=== PATIENT | female | born 1940 | race African-American/Black ===

== ENCOUNTER 2021-07-24 20:13 | Inpatient (IN) | payer MEDICARE ==
[~2021-07-24] VITALS: Ht 177.8 cm; Wt 87.5 kg
[2021-07-24 22:42] LABS: HEMATOCRIT. 37.6 % (36.0-48.0); HEMOGLOBIN. 11.8 g/dL (12.0-16.0); MEAN CORPUSCULAR VOLUME 92.5 fL (81.0-99.0); MEAN PLATELET VOLUME 9.1 fl (7.4-10.4); PLATELET 235 x1000/uL (130-400); RED BLOOD CELL COUNT 4.07 mill/uL (4.2-5.4); RED CELL DISTRIBUTION WIDTH 16.2 % (11.6-14.6)
[2021-07-24 22:45] LABS: CHLORIDE 115 mEq/L (98-107)
[2021-07-24 23:07] LABS: PLATELET ESTIMATE NORMAL
[2021-07-24] MEDS ORDERED: ACETAMINOPHEN 650MG SUPP PR STA (23:09)
[2021-07-24] MEDS ORDERED: VANCOMYCIN 1G PREMIX 200 ML IV SCH (23:15)
[2021-07-24] MEDS ORDERED: PIPERACILLIN/TAZ 3.375G PREMIX 50 ML IV SCH (23:15)
[2021-07-24] MEDS ORDERED: SODIUM CHLORIDE 0.9% 1000ML BAG (SEPSIS BOLUS) IV ONE (23:15)
[2021-07-24] MEDS ORDERED: ACETAMINOPHEN 650MG SUPP PR SCH (23:30)
[2021-07-25 00:14] LABS: CLARITY URINE CLOUDY (CLEAR); COLOR URINE YELLOW (YELLOW); KETONES URINE NEGATIVE (NEGATIVE); LEUKOCYTE ESTERASE URINE 3+ (NEGATIVE); NITRITE URINE NEGATIVE (NEGATIVE); OCCULT BLOOD URINE NEGATIVE (NEGATIVE); PROTEIN URINE 1+ (NEGATIVE); SPECIFIC GRAVITY URINE 1.017 (1.005-1.030); UROBILINOGEN URINE 0.2 E.U./dL (0.2-1.0)
[2021-07-25] MEDS ORDERED: VANCOMYCIN 1GM PMX (XELLIA) 200 ML IV SCH (00:15)
[2021-07-25] MEDS ORDERED: ONDANSETRON HCL 4MG/2ML INJ IV PRN (04:30)
[2021-07-25] MEDS ORDERED: SODIUM CHLORIDE 0.9% 1,000 ML IV SCH (04:30)
[2021-07-25] MEDS ORDERED: IPRATROPIUM/ALBUTEROL 0.5-3(2.5)MG/3ML NEB HHN PRN (04:30)
[2021-07-25] MEDS ORDERED: SODIUM CHLORIDE 0.9% 250 ML IV PRN (04:30)
[2021-07-25] MEDS ORDERED: GUAIFENESIN 200MG/10ML SUGAR FREE UDC PO PRN (04:30)
[2021-07-25] MEDS ORDERED: ENOXAPARIN 40MG/0.4ML SYR SUBCUT SCH (04:30)
[2021-07-25] MEDS ORDERED: DEXTROSE 50% WATER 50ML SYRINGE IV PRN (04:45)
[2021-07-25] MEDS ORDERED: PIPERACILLIN/TAZOBACTAM 3.375GM/50ML PREMIX IV SCH (06:00)
[2021-07-25 06:30] VITALS: BP 101/47
[2021-07-25] MEDS: BLOOD SUGAR DIAGNOSTIC STRIP TEST SCH ×4 (07:10→21:36)
[2021-07-25 08:00] VITALS: BP 96/50
[2021-07-25] MEDS: ENOXAPARIN 30MG/0.3ML SYR SUBCUT SCH (08:48)
[2021-07-25] MEDS: INSULIN LISPRO 100 UNITS/ML SUBCUT SCH ×4 (08:49→21:00)
[2021-07-25 09:31] LABS: HEMATOCRIT. 31.3 % (36.0-48.0); MEAN CORPUSCULAR HEMOGLOBIN 29.5 pg (28.0-32.0); MEAN CORPUSCULAR VOLUME 92.9 fL (81.0-99.0); MEAN PLATELET VOLUME 8.5 fl (7.4-10.4); PLATELET 169 x1000/uL (130-400); RED BLOOD CELL COUNT 3.38 mill/uL (4.2-5.4); RED CELL DISTRIBUTION WIDTH 16.4 % (11.6-14.6)
[2021-07-25] MEDS ORDERED: LACTATED RINGERS 1,000 ML IV SCH (10:00)
[2021-07-25 11:04] LABS: PLATELET ESTIMATE NORMAL
[2021-07-25 12:00] VITALS: BP 120/56
[2021-07-25] MEDS: PIPERACILLIN/TAZOBACTAM 3.375G in DEXT 5% WATER 50ML IV SCH ×3 (14:09→21:40)
[2021-07-25] MEDS: DEXT 5%/LACTATED RINGERS 1,000 ML IV SCH (14:10)
[2021-07-25 15:21] VITALS: BP 96/50
[2021-07-25 16:00] VITALS: BP 105/51
[2021-07-25 20:00] VITALS: BP 136/55
[2021-07-25] MEDS ORDERED: NALOXONE HCL 0.4MG/ML VIAL IV PRN (22:45)
[2021-07-25] MEDS ORDERED: VANCOMYCIN 750MG PMX (XELLIA) 150 ML IV SCH (23:00)
[2021-07-26] VITALS (7 sets, daily range): BP systolic 99–120; BP diastolic 51–65
[2021-07-26] MEDS: TRAMADOL 50MG TABLET PO PRN (00:03)
[2021-07-26] MEDS: ACETAMINOPHEN 325MG TABLET PO PRN ×2 (00:09→23:48)
[2021-07-26] MEDS ORDERED: VANCOMYCIN 750MG PMX (XELLIA) 150 ML IV SCH (01:00)
[2021-07-26] MEDS: DEXT 5%/LACTATED RINGERS 1,000 ML IV SCH ×2 (02:55→18:15)
[2021-07-26] MEDS: PIPERACILLIN/TAZOBACTAM 3.375G in DEXT 5% WATER 50ML IV SCH ×3 (05:48→21:51)
[2021-07-26 06:29] LABS: HEMATOCRIT. 30.8 % (36.0-48.0); MEAN CORPUSCULAR HEMOGLOBIN 29.7 pg (28.0-32.0); MEAN CORPUSCULAR VOLUME 91.5 fL (81.0-99.0); MEAN PLATELET VOLUME 8.5 fl (7.4-10.4); PLATELET 166 x1000/uL (130-400); RED BLOOD CELL COUNT 3.37 mill/uL (4.2-5.4); RED CELL DISTRIBUTION WIDTH 15.7 % (11.6-14.6)
[2021-07-26] MEDS: INSULIN LISPRO 100 UNITS/ML SUBCUT SCH ×4 (07:02→20:26)
[2021-07-26] MEDS: BLOOD SUGAR DIAGNOSTIC STRIP TEST SCH ×4 (07:02→20:26)
[2021-07-26] MEDS: ENOXAPARIN 30MG/0.3ML SYR SUBCUT SCH (08:43)
[2021-07-26] MEDS: VANCOMYCIN 1GM PMX (XELLIA) 200 ML IV SCH (12:53)
[2021-07-26 21:03] LABS: PLATELET ESTIMATE NORMAL
[2021-07-27 04:00] VITALS: BP 104/54
[2021-07-27] MEDS: VANCOMYCIN 1GM PMX (XELLIA) 200 ML IV SCH ×2 (05:34→23:36)
[2021-07-27] MEDS: PIPERACILLIN/TAZOBACTAM 3.375G in DEXT 5% WATER 50ML IV SCH ×3 (05:34→21:37)
[2021-07-27] MEDS: DEXT 5%/LACTATED RINGERS 1,000 ML IV SCH ×2 (05:43→22:14)
[2021-07-27] MEDS: BLOOD SUGAR DIAGNOSTIC STRIP TEST SCH ×4 (05:47→20:39)
[2021-07-27] MEDS: INSULIN LISPRO 100 UNITS/ML SUBCUT SCH ×4 (05:47→20:39)
[2021-07-27 08:00] VITALS: BP 94/52
[2021-07-27] MEDS: ENOXAPARIN 30MG/0.3ML SYR SUBCUT SCH (09:00)
[2021-07-27 12:00] VITALS: BP 118/64
[2021-07-27] MEDS: SERTRALINE HCL 50MG TABLET PO SCH (13:59)
[2021-07-27 14:11] LABS: CHLORIDE 115 mEq/L (98-107)
[2021-07-27 16:00] VITALS: BP 111/66
[2021-07-27 16:08] LABS: HEMATOCRIT. 39.3 % (36.0-48.0); HEMOGLOBIN. 12.3 g/dL (12.0-16.0); MEAN CORPUSCULAR HEMOGLOBIN 29.2 pg (28.0-32.0); MEAN CORPUSCULAR VOLUME 93.5 fL (81.0-99.0); MEAN PLATELET VOLUME 8.6 fl (7.4-10.4); PLATELET 201 x1000/uL (130-400); RED BLOOD CELL COUNT 4.21 mill/uL (4.2-5.4); RED CELL DISTRIBUTION WIDTH 16.3 % (11.6-14.6)
[2021-07-27 17:03] LABS: PLATELET ESTIMATE NORMAL
[2021-07-27 20:00] VITALS: BP 112/62
[2021-07-27] MEDS: BUSPIRONE HCL 5MG TABLET PO SCH (20:39)
[2021-07-27] MEDS: ATORVASTATIN CALCIUM 10MG TABLET PO SCH (20:39)
[2021-07-28] VITALS: BP 117/52
[2021-07-28 04:00] VITALS: BP 108/58
[2021-07-28] MEDS: PIPERACILLIN/TAZOBACTAM 3.375G in DEXT 5% WATER 50ML IV SCH ×3 (05:28→22:51)
[2021-07-28] MEDS: BLOOD SUGAR DIAGNOSTIC STRIP TEST SCH ×4 (06:54→21:56)
[2021-07-28] MEDS: INSULIN LISPRO 100 UNITS/ML SUBCUT SCH ×4 (06:54→21:00)
[2021-07-28] MEDS: OMEPRAZOLE 20MG CAPSULE EXTENDED RELEASE PO SCH (06:54)
[2021-07-28 07:59] VITALS: BP 109/50
[2021-07-28] MEDS: BUSPIRONE HCL 5MG TABLET PO SCH ×2 (08:12→21:56)
[2021-07-28] MEDS: SERTRALINE HCL 50MG TABLET PO SCH (08:13)
[2021-07-28] MEDS: MULTIVITAMINS,THER W-MINERALS TABLET PO SCH (08:13)
[2021-07-28] MEDS: ENOXAPARIN 40MG/0.4ML SYR SUBCUT SCH (08:14)
[2021-07-28] MEDS: DEXT 5%/LACTATED RINGERS 1,000 ML IV SCH ×2 (08:15→22:48)
[2021-07-28 12:00] VITALS: BP_SYST 100; BP_SYST 122; BP_DIAS 50; BP_DIAS 53
[2021-07-28 13:18] LABS: HEMOGLOBIN. 11.1 g/dL (12.0-16.0); MEAN CORPUSCULAR HEMOGLOBIN 29.2 pg (28.0-32.0); MEAN CORPUSCULAR VOLUME 91.8 fL (81.0-99.0); MEAN PLATELET VOLUME 8.4 fl (7.4-10.4); PLATELET 241 x1000/uL (130-400); RED BLOOD CELL COUNT 3.81 mill/uL (4.2-5.4); RED CELL DISTRIBUTION WIDTH 15.9 % (11.6-14.6)
[2021-07-28 13:31] LABS: CHLORIDE 114 mEq/L (98-107)
[2021-07-28 13:46] LABS: PLATELET ESTIMATE NORMAL
[2021-07-28 16:00] VITALS: BP 100/50
[2021-07-28] MEDS ORDERED: POTASSIUM CHLORIDE 20MEQ TABLET SR PO NR (18:30)
[2021-07-28] MEDS: VANCOMYCIN 1GM PMX (XELLIA) 200 ML IV SCH (18:51)
[2021-07-28 20:00] VITALS: BP 135/54
[2021-07-28] MEDS: ATORVASTATIN CALCIUM 10MG TABLET PO SCH (21:56)
[2021-07-29] VITALS: BP_SYST 116; BP_DIAS 51; BP_DIAS 62
[2021-07-29 04:00] VITALS: BP 128/53
[2021-07-29] MEDS: PIPERACILLIN/TAZOBACTAM 3.375G in DEXT 5% WATER 50ML IV SCH ×3 (05:50→21:11)
[2021-07-29] MEDS: BLOOD SUGAR DIAGNOSTIC STRIP TEST SCH ×4 (07:09→20:23)
[2021-07-29] MEDS: INSULIN LISPRO 100 UNITS/ML SUBCUT SCH ×4 (07:09→20:23)
[2021-07-29 07:35] LABS: CHLORIDE 113 mEq/L (98-107)
[2021-07-29 08:00] VITALS: BP 119/51
[2021-07-29] MEDS: BUSPIRONE HCL 5MG TABLET PO SCH ×2 (09:00→21:11)
[2021-07-29] MEDS: MULTIVITAMINS,THER W-MINERALS TABLET PO SCH ×2 (09:00→13:12)
[2021-07-29] MEDS ORDERED: POTASSIUM CHLORIDE 20MEQ TABLET SR PO NR (09:45)
[2021-07-29 12:30] VITALS: BP 121/56
[2021-07-29] MEDS: ENOXAPARIN 40MG/0.4ML SYR SUBCUT SCH (13:07)
[2021-07-29] MEDS: OMEPRAZOLE 20MG CAPSULE EXTENDED RELEASE PO SCH (13:07)
[2021-07-29] MEDS: DEXT 5%/LACTATED RINGERS 1,000 ML IV SCH (13:08)
[2021-07-29] MEDS: VANCOMYCIN 1GM PMX (XELLIA) 200 ML IV SCH (13:08)
[2021-07-29] MEDS: SERTRALINE HCL 50MG TABLET PO SCH (15:18)
[2021-07-29] MEDS: THEOPHYLLINE ANHYDROUS 80 MG/15 ML 120ML PO SCH ×2 (15:18→21:11)
[2021-07-29 16:00] VITALS: BP 121/54
[2021-07-29 20:00] VITALS: BP 138/61
[2021-07-29] MEDS: ATORVASTATIN CALCIUM 10MG TABLET PO SCH (21:11)
[2021-07-29] MEDS: ACETAMINOPHEN 325MG TABLET PO PRN (23:41)
[2021-07-30] VITALS: BP 117/58
[2021-07-30 04:00] VITALS: BP 115/52
[2021-07-30] MEDS: PIPERACILLIN/TAZOBACTAM 3.375G in DEXT 5% WATER 50ML IV SCH ×3 (05:27→21:20)
[2021-07-30] MEDS: VANCOMYCIN 1GM PMX (XELLIA) 200 ML IV SCH ×2 (05:27→23:08)
[2021-07-30] MEDS: BLOOD SUGAR DIAGNOSTIC STRIP TEST SCH ×4 (05:27→21:17)
[2021-07-30] MEDS: THEOPHYLLINE ANHYDROUS 80 MG/15 ML 120ML PO SCH ×3 (05:27→21:17)
[2021-07-30] MEDS: DEXT 5%/LACTATED RINGERS 1,000 ML IV SCH ×2 (05:28→15:18)
[2021-07-30] MEDS: INSULIN LISPRO 100 UNITS/ML SUBCUT SCH ×4 (05:37→21:00)
[2021-07-30 08:00] VITALS: BP 112/58
[2021-07-30] MEDS: MULTIVITAMINS,THER W-MINERALS TABLET PO SCH (08:48)
[2021-07-30] MEDS: ENOXAPARIN 40MG/0.4ML SYR SUBCUT SCH (08:48)
[2021-07-30] MEDS: FAMOTIDINE 20MG TABLET PO SCH (08:49)
[2021-07-30 10:18] LABS: HEMATOCRIT. 32.8 % (36.0-48.0); HEMOGLOBIN. 10.5 g/dL (12.0-16.0); MEAN CORPUSCULAR HEMOGLOBIN 28.8 pg (28.0-32.0); MEAN CORPUSCULAR VOLUME 89.7 fL (81.0-99.0); MEAN PLATELET VOLUME 7.6 fl (7.4-10.4); PLATELET 292 x1000/uL (130-400); RED BLOOD CELL COUNT 3.65 mill/uL (4.2-5.4); RED CELL DISTRIBUTION WIDTH 15.6 % (11.6-14.6)
[2021-07-30 10:25] LABS: CHLORIDE 111 mEq/L (98-107)
[2021-07-30] MEDS ORDERED: POTASSIUM CHLORIDE 20MEQ TABLET SR PO SCH (10:30)
[2021-07-30 12:00] VITALS: BP 122/54
[2021-07-30] MEDS: BUSPIRONE HCL 5MG TABLET PO SCH ×2 (12:23→21:16)
[2021-07-30] MEDS: SERTRALINE HCL 50MG TABLET PO SCH (12:24)
[2021-07-30] MEDS: ACETAMINOPHEN 325MG TABLET PO PRN (14:07)
[2021-07-30] MEDS: TRAMADOL 50MG TABLET PO PRN (15:12)
[2021-07-30 16:00] VITALS: BP 137/57
[2021-07-30 17:42] LABS: PLATELET ESTIMATE NORMAL
[2021-07-30 20:00] VITALS: BP 128/77
[2021-07-30] MEDS: ATORVASTATIN CALCIUM 10MG TABLET PO SCH (21:16)
[2021-07-30] MEDS: DIPHENHYDRAMINE 50MG/ML VIAL IV PRN (23:04)
[2021-07-31] VITALS: BP 133/78
[2021-07-31 04:00] VITALS: BP 105/72
[2021-07-31] MEDS: BLOOD SUGAR DIAGNOSTIC STRIP TEST SCH ×4 (05:22→20:43)
[2021-07-31] MEDS: THEOPHYLLINE ANHYDROUS 80 MG/15 ML 120ML PO SCH ×2 (05:22→20:48)
[2021-07-31] MEDS: DEXT 5%/LACTATED RINGERS 1,000 ML IV SCH ×2 (05:22→20:43)
[2021-07-31] MEDS: PIPERACILLIN/TAZOBACTAM 3.375G in DEXT 5% WATER 50ML IV SCH ×3 (05:22→20:43)
[2021-07-31] MEDS: INSULIN LISPRO 100 UNITS/ML SUBCUT SCH (05:23)
[2021-07-31 08:00] VITALS: BP 114/51
[2021-07-31 09:07] LABS: IMMUNOGLOBULIN A 35 mg/dL (64-422); IMMUNOGLOBULIN G 189 mg/dL (586-1602); IMMUNOGLOBULIN M 43 mg/dL (26-217)
[2021-07-31] MEDS: SERTRALINE HCL 50MG TABLET PO SCH (09:41)
[2021-07-31] MEDS: MULTIVITAMINS,THER W-MINERALS TABLET PO SCH (09:42)
[2021-07-31] MEDS: ENOXAPARIN 40MG/0.4ML SYR SUBCUT SCH (09:42)
[2021-07-31] MEDS: FAMOTIDINE 20MG TABLET PO SCH (09:42)
[2021-07-31] MEDS: BUSPIRONE HCL 5MG TABLET PO SCH ×2 (09:42→20:42)
[2021-07-31 09:47] LABS: HEMOGLOBIN. 10.4 g/dL (12.0-16.0); MEAN CORPUSCULAR HEMOGLOBIN 28.8 pg (28.0-32.0); MEAN CORPUSCULAR VOLUME 88.6 fL (81.0-99.0); MEAN PLATELET VOLUME 7.6 fl (7.4-10.4); PLATELET 318 x1000/uL (130-400); RED BLOOD CELL COUNT 3.61 mill/uL (4.2-5.4); RED CELL DISTRIBUTION WIDTH 15.5 % (11.6-14.6)
[2021-07-31 10:02] LABS: CHLORIDE 110 mEq/L (98-107)
[2021-07-31 10:04] LABS: HAPTOGLOBIN 168 mg/dL (30-200)
[2021-07-31] MEDS ORDERED: POTASSIUM CHLORIDE 20MEQ TABLET SR PO NR (10:15)
[2021-07-31 10:51] LABS: PLATELET ESTIMATE NORMAL
[2021-07-31 12:00] VITALS: BP 107/47
[2021-07-31 16:00] VITALS: BP 111/45
[2021-07-31] MEDS: LIDOCAINE 5% PATCH TOP SCH (17:30)
[2021-07-31] MEDS: VANCOMYCIN 1GM PMX (XELLIA) 200 ML IV SCH (18:59)
[2021-07-31 20:00] VITALS: BP 127/51
[2021-07-31] MEDS: ATORVASTATIN CALCIUM 10MG TABLET PO SCH (20:42)
[2021-08-01] VITALS: BP 118/69
[2021-08-01 04:00] VITALS: BP 106/42
[2021-08-01] MEDS: BLOOD SUGAR DIAGNOSTIC STRIP TEST SCH ×4 (04:43→19:58)
[2021-08-01] MEDS: DEXT 5%/LACTATED RINGERS 1,000 ML IV SCH ×2 (04:44→19:59)
[2021-08-01] MEDS: PIPERACILLIN/TAZOBACTAM 3.375G in DEXT 5% WATER 50ML IV SCH ×3 (04:44→19:58)
[2021-08-01] MEDS: TRAMADOL 50MG TABLET PO PRN (04:44)
[2021-08-01 07:35] LABS: HEMATOCRIT. 30.3 % (36.0-48.0); MEAN CORPUSCULAR HEMOGLOBIN 29.4 pg (28.0-32.0); MEAN CORPUSCULAR VOLUME 89.1 fL (81.0-99.0); MEAN PLATELET VOLUME 7.9 fl (7.4-10.4); PLATELET 327 x1000/uL (130-400); RED CELL DISTRIBUTION WIDTH 15.4 % (11.6-14.6)
[2021-08-01 07:44] LABS: CHLORIDE 109 mEq/L (98-107)
[2021-08-01 08:10] VITALS: BP 108/50
[2021-08-01] MEDS: FAMOTIDINE 20MG TABLET PO SCH (08:24)
[2021-08-01] MEDS: BUSPIRONE HCL 5MG TABLET PO SCH ×2 (08:25→19:58)
[2021-08-01] MEDS: ENOXAPARIN 40MG/0.4ML SYR SUBCUT SCH (08:26)
[2021-08-01] MEDS: LIDOCAINE 5% PATCH TOP SCH (08:27)
[2021-08-01] MEDS: SERTRALINE HCL 50MG TABLET PO SCH (08:27)
[2021-08-01] MEDS: MULTIVITAMINS,THER W-MINERALS TABLET PO SCH (08:27)
[2021-08-01] MEDS: THEOPHYLLINE ANHYDROUS 80 MG/15 ML 120ML PO SCH ×2 (08:28→19:58)
[2021-08-01] MEDS: VANCOMYCIN 1GM PMX (XELLIA) 200 ML IV SCH (11:36)
[2021-08-01 12:24] VITALS: BP 117/51
[2021-08-01 13:04] LABS: PLATELET ESTIMATE NORMAL
[2021-08-01 15:34] VITALS: BP 120/54
[2021-08-01] MEDS: ATORVASTATIN CALCIUM 10MG TABLET PO SCH (19:58)
[2021-08-01 20:00] VITALS: BP 131/60
[2021-08-02] VITALS: BP 124/51
[2021-08-02] MEDS: DIPHENHYDRAMINE 50MG/ML VIAL IV PRN (00:22)
[2021-08-02 04:00] VITALS: BP 134/53
[2021-08-02 04:08] LABS: IMMUNOGLOBULIN E TOTAL <2 IU/mL (6-495)
[2021-08-02] MEDS: BLOOD SUGAR DIAGNOSTIC STRIP TEST SCH ×2 (05:08→13:09)
[2021-08-02] MEDS: PIPERACILLIN/TAZOBACTAM 3.375G in DEXT 5% WATER 50ML IV SCH ×2 (05:14→13:11)
[2021-08-02] MEDS: VANCOMYCIN 1GM PMX (XELLIA) 200 ML IV SCH (05:14)
[2021-08-02 07:52] VITALS: BP 124/50
[2021-08-02 08:30] LABS: HEMATOCRIT. 29.7 % (36.0-48.0); HEMOGLOBIN. 9.8 g/dL (12.0-16.0); MEAN CORPUSCULAR HEMOGLOBIN 28.9 pg (28.0-32.0); MEAN CORPUSCULAR VOLUME 87.8 fL (81.0-99.0); MEAN PLATELET VOLUME 7.8 fl (7.4-10.4); PLATELET 334 x1000/uL (130-400); RED BLOOD CELL COUNT 3.38 mill/uL (4.2-5.4); RED CELL DISTRIBUTION WIDTH 15.5 % (11.6-14.6)
[2021-08-02 08:35] LABS: CHLORIDE 109 mEq/L (98-107)
[2021-08-02] MEDS: THEOPHYLLINE ANHYDROUS 80 MG/15 ML 120ML PO SCH (08:39)
[2021-08-02] MEDS: LIDOCAINE 5% PATCH TOP SCH (08:41)
[2021-08-02] MEDS: ENOXAPARIN 40MG/0.4ML SYR SUBCUT SCH (08:41)
[2021-08-02] MEDS: MULTIVITAMINS,THER W-MINERALS TABLET PO SCH (08:42)
[2021-08-02] MEDS: FAMOTIDINE 20MG TABLET PO SCH (08:42)
[2021-08-02] MEDS: SERTRALINE HCL 50MG TABLET PO SCH (08:42)
[2021-08-02] MEDS: DEXT 5%/LACTATED RINGERS 1,000 ML IV SCH (08:53)
[2021-08-02] MEDS ORDERED: POTASSIUM CHLORIDE 20MEQ TABLET SR PO NR (10:30)
[2021-08-02 12:25] VITALS: BP 109/50
[2021-08-02 12:52] VITALS: BP 108/50
[2021-08-02] MEDS: TRAMADOL 50MG TABLET PO PRN (13:08)
[2021-08-02] MEDS ORDERED: NALOXONE HCL 0.4MG/ML VIAL IV PRN (13:45)
[2021-08-02 14:03] LABS: PLATELET ESTIMATE NORMAL
[2021-08-02] MEDS: ACETAMINOPHEN 325MG TABLET PO PRN (14:35)
[2021-08-02] MEDS ORDERED: POTASSIUM CHLORIDE 20MEQ TABLET SR PO ONE (15:00)
[2021-08-02 15:34] VITALS: BP 114/51
== END 2021-08-02 16:38 | DRG 871 ==
LOC: ER 20:13 → 8WST 07-25 00:35 → EDBEDREQDT 07-25 00:50 → EDBEDREQ 07-25 00:50 → EDBEDREQTM 07-25 00:50 → EDBEDREQSVC 07-25 00:50 → ENRESERV 07-25 03:02
PROVIDERS: ADMIT Family Medicine Adult Medicine; ATTEND Family Medicine Adult Medicine
PROC: 02HV33Z Insertion of Infusion Device into Superior Vena Cava, Percutaneous Approach (ICD-10-PCS; principal; 2021-07-29)
PROC: B518ZZA Fluoroscopy of Superior Vena Cava, Guidance (ICD-10-PCS; 2021-07-29)
PROC: B548ZZA Ultrasonography of Superior Vena Cava, Guidance (ICD-10-PCS; 2021-07-29)
DX: A41.9 Sepsis, unspecified organism (principal); J18.9 Pneumonia, unspecified organism; N17.9 Acute kidney failure, unspecified; C91.11 Chronic lymphocytic leukemia of B-cell type in remission; E87.0 Hyperosmolality and hypernatremia; D80.1 Nonfamilial hypogammaglobulinemia; N39.0 Urinary tract infection, site not specified; G93.40 Encephalopathy, unspecified; J32.4 Chronic pansinusitis; N18.9 Chronic kidney disease, unspecified; I12.9 Hypertensive chronic kidney disease with stage 1 through stage 4 chronic kidney disease, or unspecified chronic kidney disease; R65.20 Severe sepsis without septic shock; Z20.822 Contact with and (suspected) exposure to COVID-19; R09.02 Hypoxemia; E78.5 Hyperlipidemia, unspecified; D64.9 Anemia, unspecified; F03.90 Unspecified dementia, unspecified severity, without behavioral disturbance, psychotic disturbance, mood disturbance, and anxiety; F41.9 Anxiety disorder, unspecified; I25.10 Atherosclerotic heart disease of native coronary artery without angina pectoris; L89.156 Pressure-induced deep tissue damage of sacral region; E87.6 Hypokalemia; Z86.73 Personal history of transient ischemic attack (TIA), and cerebral infarction without residual deficits; Z79.82 Long term (current) use of aspirin; Z86.16 Personal history of COVID-19; Z87.01 Personal history of pneumonia (recurrent); Z87.440 Personal history of urinary (tract) infections; Z90.710 Acquired absence of both cervix and uterus; R00.1 Bradycardia, unspecified; H91.90 Unspecified hearing loss, unspecified ear
CPT/HCPCS: 36415; 36573; 71045; 71250; 74176; 76770; 80048; 80053; 80202; 81003; 82040; 82784; 82785; 82962; 83010; 83036; 83605; 83615; 83735; 83880; 84134; 84145; 84443; 84484; 85025; 86880; 87426; 93005; 93306; 97162; 99291; A6261; C1725; C1769; C1893; J1200; J1650; J2405; J2543; J3370; J7060; J7121

== ENCOUNTER 2021-10-14 23:24 | Inpatient (IN) | payer MEDICAID, MEDICARE ==
[~2021-10-14] VITALS: Ht 167.6 cm; Wt 62.6 kg
[2021-10-15] MEDS ORDERED: BACITRACIN ZINC OINT UDPKT TOP ONE
[2021-10-15] MEDS ORDERED: TETANUS, DIPHTHERIA, PERTUSSIS VAC/PF 0.5ML (>10YR OLD) IM ONE
[2021-10-15] MEDS ORDERED: LIDOCAINE HCL/EPINEPHRINE 1%-EPI 1:100,000 20 ML VIAL INFIL ONE
[2021-10-15] MEDS: ACETAMINOPHEN 325MG TABLET PO ONE ×2 (00:05→00:50)
[2021-10-15 00:11] LABS: HEMATOCRIT. 35.8 % (36.0-48.0); HEMOGLOBIN. 11.2 g/dL (12.0-16.0); MEAN CORPUSCULAR HEMOGLOBIN 28.6 pg (28.0-32.0); MEAN CORPUSCULAR VOLUME 91.7 fL (81.0-99.0); MEAN PLATELET VOLUME 8.7 fl (7.4-10.4); PLATELET 333 x1000/uL (130-400); RED BLOOD CELL COUNT 3.91 mill/uL (4.2-5.4); RED CELL DISTRIBUTION WIDTH 18.2 % (11.6-14.6)
[2021-10-15 00:22] LABS: CHLORIDE 108 mEq/L (98-107)
[2021-10-15] MEDS: PIPERACILLIN/TAZOBACTAM 3.375GM/50ML PREMIX IV SCH ×2 (00:49→02:29)
[2021-10-15] MEDS ORDERED: MORPHINE SULFATE 4 MG/ML CPJ (NOT FOR IM USE) IV ONE (01:00)
[2021-10-15 01:09] LABS: PLATELET ESTIMATE NORMAL
[2021-10-15] MEDS ORDERED: GUAIFENESIN 200MG/10ML SUGAR FREE UDC PO PRN (07:15)
[2021-10-15] MEDS ORDERED: MORPHINE SULFATE 2 MG/ML CPJ (NOT FOR IM USE) IV PRN (07:15)
[2021-10-15] MEDS ORDERED: CLONIDINE 0.1MG TABLET PO PRN (07:15)
[2021-10-15] MEDS ORDERED: MAGNESIUM/ALUMINUM HYDROXIDE/SIMETHICONE 30ML UDC PO PRN (07:15)
[2021-10-15] MEDS ORDERED: IPRATROPIUM/ALBUTEROL 0.5-3(2.5)MG/3ML NEB NEB PRN (07:15)
[2021-10-15] MEDS ORDERED: DOCUSATE SODIUM 100MG CAPSULE PO PRN (07:15)
[2021-10-15] MEDS ORDERED: ACETAMINOPHEN 325MG TABLET PO PRN (07:15)
[2021-10-15] MEDS ORDERED: NA PHOS,M-B/NA PHOS,DI-BA ENEMA 118ML PR PRN (07:15)
[2021-10-15] MEDS ORDERED: DIPHENHYDRAMINE 50MG/ML VIAL IV PRN (07:15)
[2021-10-15] MEDS ORDERED: ONDANSETRON HCL 4MG/2ML INJ IV PRN (07:15)
[2021-10-15] MEDS ORDERED: NALOXONE HCL 0.4MG/ML VIAL IV PRN (07:30)
[2021-10-15] MEDS: SODIUM CHLORIDE 0.45% 1,000 ML IV SCH ×2 (07:43→20:48)
[2021-10-15] MEDS: ENOXAPARIN 40MG/0.4ML SYR SUBCUT SCH (08:00)
[2021-10-15 09:29] LABS: CHLORIDE 110 mEq/L (98-107)
[2021-10-15 09:45] LABS: HDL CHOLESTEROL 36 mg/dL (40-59); LDL CHOLESTEROL 70 mg/dL (5-100); T4 FREE 1.15 ng/dL (0.76-1.46)
[2021-10-15] MEDS: HYDROCODONE/ACETAMINOPHEN 5/325MG TABLET PO PRN ×2 (16:15→21:45)
[2021-10-15 16:54] LABS: CREATINE KINASE 70 IU/L (26-192); CREATINE KINASE MB FRACTION < 1.0 ng/mL (0.5-3.6)
[2021-10-15 18:45] VITALS: BP 125/75
[2021-10-15 20:00] VITALS: BP 99/60
[2021-10-15] MEDS ORDERED: FAMO20TA8 PO (23:52)
[2021-10-15] MEDS ORDERED: ACAL100C PO (23:52)
[2021-10-15] MEDS ORDERED: ATOR10TA69 PO (23:52)
[2021-10-15] MEDS ORDERED: VIGAMX EACHEYE (23:52)
[2021-10-15] MEDS ORDERED: MIRT-118 MT (23:52)
[2021-10-15] MEDS ORDERED: FLUT15.844 BOTHNSTRLS (23:52)
[2021-10-16] VITALS: BP 113/61
[2021-10-16 04:00] VITALS: BP 108/72
[2021-10-16 08:00] VITALS: BP 122/61
[2021-10-16] MEDS: HYDROCODONE/ACETAMINOPHEN 5/325MG TABLET PO PRN ×2 (09:03→14:02)
[2021-10-16] MEDS: ENOXAPARIN 40MG/0.4ML SYR SUBCUT SCH (09:03)
[2021-10-16 09:26] LABS: CHLORIDE 107 mEq/L (98-107)
[2021-10-16 09:28] LABS: CREATINE KINASE 23 IU/L (26-192); CREATINE KINASE MB FRACTION < 1.0 ng/mL (0.5-3.6)
[2021-10-16] MEDS: SODIUM CHLORIDE 0.45% 1,000 ML IV SCH ×2 (10:12→23:15)
[2021-10-16 10:18] LABS: VITAMIN B12 SERUM 680 pg/mL (211-911)
[2021-10-16 12:00] VITALS: BP 132/89
[2021-10-16 16:00] VITALS: BP 135/63
[2021-10-16 20:00] VITALS: BP 104/56
[2021-10-17] VITALS: BP 121/63
[2021-10-17 04:00] VITALS: BP 123/65
[2021-10-17 08:00] VITALS: BP 138/79
[2021-10-17] MEDS: ENOXAPARIN 40MG/0.4ML SYR SUBCUT SCH (09:09)
[2021-10-17] MEDS: PANTOT AC/MIN OIL/PET HY-PHL OINT (AQUAPHOR) TOP SCH (11:34)
[2021-10-17 12:00] VITALS: BP 112/66
[2021-10-17 16:00] VITALS: BP 118/74
[2021-10-17 16:34] LABS: PROTHROMBIN TIME 10.9 sec (9.6-11.0)
[2021-10-17 16:38] LABS: HEMATOCRIT. 31.8 % (36.0-48.0); MEAN CORPUSCULAR HEMOGLOBIN 28.7 pg (28.0-32.0); MEAN PLATELET VOLUME 9.1 fl (7.4-10.4); PLATELET 328 x1000/uL (130-400); RED BLOOD CELL COUNT 3.49 mill/uL (4.2-5.4); RED CELL DISTRIBUTION WIDTH 18.3 % (11.6-14.6)
[2021-10-17] MEDS: SODIUM CHLORIDE 0.45% 1,000 ML IV SCH (17:38)
[2021-10-17] MEDS: CIPROFLOXACIN 0.3% OPHTH SOLN 2.5ML BOTHEYE SCH ×2 (17:38→20:55)
[2021-10-17 20:00] VITALS: BP 114/55
[2021-10-18] VITALS: BP 120/60
[2021-10-18 04:00] VITALS: BP 113/56
[2021-10-18 08:00] VITALS: BP 129/69
[2021-10-18] MEDS: PANTOT AC/MIN OIL/PET HY-PHL OINT (AQUAPHOR) TOP SCH (08:01)
[2021-10-18] MEDS: CIPROFLOXACIN 0.3% OPHTH SOLN 2.5ML BOTHEYE SCH ×2 (08:01→12:44)
[2021-10-18] MEDS: ENOXAPARIN 40MG/0.4ML SYR SUBCUT SCH (08:01)
[2021-10-18] MEDS: SODIUM CHLORIDE 0.45% 1,000 ML IV SCH (08:09)
[2021-10-18 10:24] VITALS: BP 124/66
[2021-10-18 12:00] VITALS: BP 110/47
[2021-10-18 15:45] LABS: PLATELET ESTIMATE NORMAL
[2021-10-18 16:00] VITALS: BP 106/55
== END 2021-10-18 21:26 | DRG 92 ==
LOC: ER 23:35 → MICUSO 10-15 05:36 → 7WST 10-15 20:47
PROVIDERS: ADMIT Internal Medicine; ATTEND Internal Medicine
PROC: 0HQ0XZZ Repair Scalp Skin, External Approach (ICD-10-PCS; principal; 2021-10-15)
DX: G92.8 Other toxic encephalopathy (principal); C91.10 Chronic lymphocytic leukemia of B-cell type not having achieved remission; E46 Unspecified protein-calorie malnutrition; R65.10 Systemic inflammatory response syndrome (SIRS) of non-infectious origin without acute organ dysfunction; I13.0 Hypertensive heart and chronic kidney disease with heart failure and stage 1 through stage 4 chronic kidney disease, or unspecified chronic kidney disease; I50.9 Heart failure, unspecified; S01.01XA Laceration without foreign body of scalp, initial encounter; I27.20 Pulmonary hypertension, unspecified; Z20.822 Contact with and (suspected) exposure to COVID-19; K21.9 Gastro-esophageal reflux disease without esophagitis; H40.9 Unspecified glaucoma; E87.5 Hyperkalemia; I25.10 Atherosclerotic heart disease of native coronary artery without angina pectoris; N18.9 Chronic kidney disease, unspecified; D63.1 Anemia in chronic kidney disease; F41.9 Anxiety disorder, unspecified; F03.90 Unspecified dementia, unspecified severity, without behavioral disturbance, psychotic disturbance, mood disturbance, and anxiety; F17.200 Nicotine dependence, unspecified, uncomplicated; Z68.22 Body mass index [BMI] 22.0-22.9, adult; Z86.73 Personal history of transient ischemic attack (TIA), and cerebral infarction without residual deficits; Z79.899 Other long term (current) drug therapy; Z82.3 Family history of stroke; Z86.16 Personal history of COVID-19; X58.XXXA Exposure to other specified factors, initial encounter; Y93.89 Activity, other specified; Y92.89 Other specified places as the place of occurrence of the external cause; Y99.8 Other external cause status
CPT/HCPCS: 36415; 71045; 80048; 80053; 80061; 82140; 82550; 82553; 82607; 83036; 83605; 83615; 83880; 84439; 84443; 84484; 85025; 85379; 87426; 90715; 93005; 93306; 93970; 95816; 97162; 99285; J1200; J1650; J2270; J2405; J2543; J3490

== ENCOUNTER 2023-01-02 17:21 | Inpatient (IN) | payer MEDICARE, MEDICAID ==
[~2023-01-02] VITALS: Ht 167.6 cm; Wt 81.2 kg
[~2023-01-02 17:21] MED LIST: ACAL100C PO; ATOR10TA69 PO; FAMO20TA8 PO; FLUT15.844 BOTHNSTRLS; MIRT-118 MT; VIGAMX EACHEYE
[2023-01-02] MEDS ORDERED: SODIUM CHLORIDE 0.9% 1000ML BAG (SEPSIS BOLUS) IV ONE (18:00)
[2023-01-02] MEDS ORDERED: PIPERACILLIN/TAZ 3.375G PREMIX 50 ML IV NR (18:00)
[2023-01-02] MEDS ORDERED: VANCOMYCIN 1G PREMIX 200 ML IV ONE (18:00)
[2023-01-02] MEDS ORDERED: ACETAMINOPHEN 500MG TABLET PO ONE (18:00)
[2023-01-02] MEDS ORDERED: PIPERACILLIN/TAZ 3.375G PREMIX 50 ML IV ONE (18:00)
[2023-01-02] MEDS ORDERED: ACETAMINOPHEN 325MG TABLET PO PRN (19:30)
[2023-01-02] MEDS ORDERED: IPRATROPIUM/ALBUTEROL 0.5-3(2.5)MG/3ML NEB HHN PRN (19:30)
[2023-01-02] MEDS ORDERED: CLONIDINE 0.1MG TABLET PO PRN (19:30)
[2023-01-02] MEDS ORDERED: MAGNESIUM/ALUMINUM HYDROXIDE/SIMETHICONE 30ML UDC PO PRN (19:30)
[2023-01-02] MEDS ORDERED: GUAIFENESIN 200MG/10ML SUGAR FREE UDC PO PRN (19:30)
[2023-01-02] MEDS ORDERED: DOCUSATE SODIUM 100MG CAPSULE PO PRN (19:30)
[2023-01-02] MEDS ORDERED: ONDANSETRON HCL 4MG/2ML INJ IV PRN (19:30)
[2023-01-02 19:47] LABS: BASOPHILS % 0.2 % (0.0-2.0); EOSINOPHILS % 0.1 % (0.0-5.0); HEMATOCRIT. 29.9 % (36.0-48.0); HEMOGLOBIN. 9.7 g/dL (12.0-16.0); LYMPHOCYTES % 8.6 % (20.0-50.0); MEAN CORPUSCULAR HEMOGLOBIN 29.9 pg (28.0-32.0); MEAN CORPUSCULAR HGB CONC 32.2 g/dL (31.0-37.0); MEAN CORPUSCULAR VOLUME 92.6 fL (81.0-99.0); MEAN PLATELET VOLUME 7.3 fl (7.4-10.4); MONOCYTES % 6.8 % (2.0-8.0); NEUTROPHILS % 84.3 % (40.0-76.0); PLATELET 383 x1000/uL (130-400); RED BLOOD CELL COUNT 3.23 mill/uL (4.2-5.4); RED CELL DISTRIBUTION WIDTH 15.3 % (11.6-14.6); WHITE BLOOD COUNT 23.1 x1000/uL (4.5-11.0)
[2023-01-02 19:50] LABS: CHLORIDE 100 mEq/L (98-107); INDEX HEMOLYSI 1 (1-3); INDEX ICTERIC 1 (1-4); INDEX LIPEMIC 1 (1-3); POTASSIUM 3.9 mEq/L (3.5-5.1); SODIUM 139 mEq/L (136-145)
[2023-01-02 19:55] LABS: INR 1.1; PROTHROMBIN TIME 11.3 sec (9.6-11.0)
[2023-01-02 19:57] LABS: ALANINE AMINOTRANSFERASE 14 IU/L (13-61); ALBUMIN 2.6 g/dL (3.4-5.0); ASPARTATE AMINOTRANSFERASE 8 IU/L (15-37); BILIRUBIN TOTAL 0.3 mg/dL (0.1-1.0); CALCIUM 9.3 mg/dL (8.5-10.1); CARBON DIOXIDE 35 mEq/L (21-32); GLUCOSE 139 mg/dL (70-105); PROTEIN TOTAL 7.1 g/dL (6.0-8.3); UREA NITROGEN BLOOD 19 mg/dL (7-21)
[2023-01-02] MEDS ORDERED: LACTULOSE 20G/30ML UDC PO NR (20:30)
[2023-01-02] MEDS ORDERED: DOCUSATE SODIUM 100MG CAPSULE PO NR (20:30)
[2023-01-02] MEDS ORDERED: NA PHOS,M-B/NA PHOS,DI-BA ENEMA 118ML PR NR (20:30)
[2023-01-02] MEDS ORDERED: TRAMADOL 50MG TABLET PO NR (20:30)
[2023-01-02] MEDS ORDERED: BISACODYL 5MG TABLET PO NR (20:30)
[2023-01-02 20:49] LABS: INDEX HEMOLYSI 1 (1-3); INDEX ICTERIC 1 (1-4); INDEX LIPEMIC 1 (1-3)
[2023-01-02 20:56] LABS: IRON 10 ug/dL (50-175); TOTAL IRON BINDING CAPACITY 210 ug/dL (250-450)
[2023-01-02] MEDS: ACETAMINOPHEN 325MG TABLET PO PRN (21:33)
[2023-01-02 21:46] LABS: CLARITY URINE TURBID (CLEAR); COLOR URINE YELLOW (YELLOW); GLUCOSE URINE NEGATIVE (NEGATIVE); KETONES URINE NEGATIVE (NEGATIVE); LEUKOCYTE ESTERASE URINE 2+ (NEGATIVE); NITRITE URINE NEGATIVE (NEGATIVE); OCCULT BLOOD URINE 2+ (NEGATIVE); PH URINE 5.5 (4.5-8.0); PROTEIN URINE 2+ (NEGATIVE); SPECIFIC GRAVITY URINE 1.018 (1.005-1.030); UROBILINOGEN URINE 0.2 E.U./dL (0.2-1.0)
[2023-01-02 22:03] LABS: BACTERIA URINE 3+; SQUAMOUS EPITHELIAL CELL URINE 1+ /lpf (RARE/1+)
[2023-01-02 22:04] LABS: WBC URINE 25-50 /hpf (0-2)
[2023-01-02] MEDS: PANTOPRAZOLE SODIUM 40 MG/VIAL IV SCH (23:30)
[2023-01-03 00:30] VITALS: BP 109/56; PULSE 83; RESP 21; TEMP 97.2
[2023-01-03] MEDS ORDERED: HYDROCODONE/ACETAMINOPHEN 5/325MG TABLET PO NR (01:15)
[2023-01-03] MEDS ORDERED: ZOLPIDEM TARTRATE 5MG TABLET PO NR (01:15)
[2023-01-03 02:18] LABS: TROPONIN I HIGH SENSITIVITY 17 ng/L (<54)
[2023-01-03 05:38] LABS: BASOPHILS % 0.1 % (0.0-2.0); EOSINOPHILS % 0.1 % (0.0-5.0); HEMATOCRIT. 27.7 % (36.0-48.0); HEMOGLOBIN. 8.8 g/dL (12.0-16.0); LYMPHOCYTES % 7.5 % (20.0-50.0); MEAN CORPUSCULAR HEMOGLOBIN 30.1 pg (28.0-32.0); MEAN CORPUSCULAR HGB CONC 31.7 g/dL (31.0-37.0); MEAN PLATELET VOLUME 7.5 fl (7.4-10.4); MONOCYTES % 5.2 % (2.0-8.0); NEUTROPHILS % 87.1 % (40.0-76.0); PLATELET 318 x1000/uL (130-400); RED BLOOD CELL COUNT 2.92 mill/uL (4.2-5.4); RED CELL DISTRIBUTION WIDTH 15.9 % (11.6-14.6); WHITE BLOOD COUNT 21.8 x1000/uL (4.5-11.0)
[2023-01-03] MEDS ORDERED: VANCOMYCIN 500MG PREMIX 100 ML IV SCH (06:00)
[2023-01-03] MEDS ORDERED: PIPERACILLIN/TAZOBACTAM 3.375 G in DEXTROSE 5% WATER 50 ML IV SCH (06:00)
[2023-01-03 06:32] LABS: CHLORIDE 103 mEq/L (98-107); INDEX HEMOLYSI 1 (1-3); INDEX ICTERIC 1 (1-4); INDEX LIPEMIC 1 (1-3); POTASSIUM 4.1 mEq/L (3.5-5.1); SODIUM 140 mEq/L (136-145)
[2023-01-03 06:47] LABS: ALANINE AMINOTRANSFERASE 11 IU/L (13-61); ALBUMIN 2.3 g/dL (3.4-5.0); ASPARTATE AMINOTRANSFERASE 9 IU/L (15-37); BILIRUBIN TOTAL 0.3 mg/dL (0.1-1.0); CALCIUM 8.9 mg/dL (8.5-10.1); CARBON DIOXIDE 29 mEq/L (21-32); CHOLESTEROL 107 mg/dL (<200); CREATININE 0.9 mg/dL (0.6-1.3); GLUCOSE 136 mg/dL (70-105); HDL CHOLESTEROL 51 mg/dL (40-59); LDL CHOLESTEROL 52 mg/dL (5-100); PROTEIN TOTAL 6.3 g/dL (6.0-8.3); T4 FREE 0.91 ng/dL (0.76-1.46); TRIGLYCERIDE 107 mg/dL (0-150); UREA NITROGEN BLOOD 19 mg/dL (7-21)
[2023-01-03 08:00] VITALS: BP 148/70; PULSE 93; RESP 18; TEMP 98.9
[2023-01-03 08:08] LABS: TROPONIN I HIGH SENSITIVITY 18 ng/L (<54)
[2023-01-03] MEDS: PANTOPRAZOLE SODIUM 40 MG/VIAL IV SCH (08:15)
[2023-01-03 09:26] VITALS: PULSE 95; RESP 22
[2023-01-03] MEDS: SODIUM CHLORIDE 0.45% 1,000 ML IV SCH ×3 (10:20→22:07)
[2023-01-03] MEDS: IRON SUCROSE COMPLEX 100 MG/5 ML ML IV SCH (10:21)
[2023-01-03] MEDS ORDERED: DOCU-150 PO (11:03)
[2023-01-03] MEDS ORDERED: TRAZ-251 PO (11:03)
[2023-01-03] MEDS ORDERED: RISP1 PO (11:03)
[2023-01-03] MEDS ORDERED: MONT-46 PO (11:03)
[2023-01-03] MEDS ORDERED: FURO20TA4 PO (11:03)
[2023-01-03] MEDS ORDERED: GABA-529 PO (11:03)
[2023-01-03] MEDS ORDERED: CLON0.1T PO (11:03)
[2023-01-03] MEDS ORDERED: HYDR-4001 PO (11:03)
[2023-01-03] MEDS ORDERED: SERT-112 PO (11:03)
[2023-01-03 12:00] VITALS: BP 154/85; PULSE 71; RESP 18; TEMP 96.6
[2023-01-03] MEDS: ACETAMINOPHEN 325MG TABLET PO PRN (14:53)
[2023-01-03] MEDS: PIPERACILLIN/TAZOBACTAM 3.375 G in DEXTROSE 5% WATER 50 ML IV SCH ×2 (15:11→22:06)
[2023-01-03 16:00] VITALS: BP 111/45; PULSE 77; RESP 18; TEMP 98.9
[2023-01-03] MEDS: VANCOMYCIN 750MG PREMIX 150 ML IV SCH (17:03)
[2023-01-03] MEDS: RISPERIDONE 1MG TABLET PO SCH (18:42)
[2023-01-03] MEDS: DOCUSATE SODIUM 100MG CAPSULE PO SCH (18:42)
[2023-01-03] MEDS: MONTELUKAST SODIUM 10MG TABLET PO SCH (18:42)
[2023-01-03 20:00] VITALS: BP 116/86; PULSE 69; RESP 18; TEMP 97.9
[2023-01-03] MEDS ORDERED: TRAZODONE HCL 50MG TABLET PO ONE (21:00)
[2023-01-03] MEDS: MIRTAZAPINE 15MG TABLET PO SCH (22:05)
[2023-01-03] MEDS: TRAZODONE HCL 50MG TABLET PO SCH (22:06)
[2023-01-03] MEDS: SERTRALINE HCL 100MG TABLET PO SCH (22:06)
[2023-01-03] MEDS: ATORVASTATIN CALCIUM 10MG TABLET PO SCH (22:06)
[2023-01-04] VITALS: BP 123/54; PULSE 82; RESP 20; TEMP 100.1
[2023-01-04 04:00] VITALS: BP 136/62; PULSE 82; RESP 21; TEMP 99.8
[2023-01-04] MEDS: PIPERACILLIN/TAZOBACTAM 3.375 G in DEXTROSE 5% WATER 50 ML IV SCH ×3 (06:28→22:33)
[2023-01-04 06:44] LABS: BASOPHILS % 0.2 % (0.0-2.0); EOSINOPHILS % 0.8 % (0.0-5.0); HEMOGLOBIN. 9.1 g/dL (12.0-16.0); LYMPHOCYTES % 11.6 % (20.0-50.0); MEAN CORPUSCULAR HGB CONC 32.4 g/dL (31.0-37.0); MEAN CORPUSCULAR VOLUME 92.5 fL (81.0-99.0); MEAN PLATELET VOLUME 8.1 fl (7.4-10.4); MONOCYTES % 5.5 % (2.0-8.0); NEUTROPHILS % 81.9 % (40.0-76.0); PLATELET 310 x1000/uL (130-400); RED BLOOD CELL COUNT 3.03 mill/uL (4.2-5.4); RED CELL DISTRIBUTION WIDTH 15.9 % (11.6-14.6)
[2023-01-04 07:28] LABS: CHLORIDE 102 mEq/L (98-107); INDEX HEMOLYSI 1 (1-3); INDEX ICTERIC 1 (1-4); INDEX LIPEMIC 1 (1-3); POTASSIUM 3.6 mEq/L (3.5-5.1); SODIUM 136 mEq/L (136-145)
[2023-01-04 07:42] LABS: ALANINE AMINOTRANSFERASE 12 IU/L (13-61); ALBUMIN 2.2 g/dL (3.4-5.0); ASPARTATE AMINOTRANSFERASE 11 IU/L (15-37); BILIRUBIN TOTAL 0.4 mg/dL (0.1-1.0); CARBON DIOXIDE 31 mEq/L (21-32); CREATININE 0.7 mg/dL (0.6-1.3); GLUCOSE 88 mg/dL (70-105); PROTEIN TOTAL 6.4 g/dL (6.0-8.3); UREA NITROGEN BLOOD 14 mg/dL (7-21)
[2023-01-04 08:00] VITALS: BP 118/52; PULSE 68; RESP 18; TEMP 98.9
[2023-01-04] MEDS: IRON SUCROSE COMPLEX 100 MG/5 ML ML IV SCH (08:18)
[2023-01-04] MEDS: PANTOPRAZOLE SODIUM 40 MG/VIAL IV SCH (08:18)
[2023-01-04] MEDS: RISPERIDONE 1MG TABLET PO SCH ×2 (08:19→16:38)
[2023-01-04] MEDS: DOCUSATE SODIUM 100MG CAPSULE PO SCH ×2 (08:19→16:38)
[2023-01-04] MEDS: VANCOMYCIN 750MG PREMIX 150 ML IV SCH ×2 (11:18→21:40)
[2023-01-04 11:57] VITALS: BP 128/49; PULSE 75; RESP 18; TEMP 97.5
[2023-01-04] MEDS: SODIUM CHLORIDE 0.45% 1,000 ML IV SCH (13:06)
[2023-01-04] MEDS: CALQUENCE 100 MG PO SCH ×2 (13:32→22:33)
[2023-01-04] MEDS ORDERED: SODIUM CHLORIDE 0.9% 1,000 ML IV ONE (14:45)
[2023-01-04 15:56] VITALS: BP 108/57; PULSE 64; RESP 18; TEMP 97.8
[2023-01-04] MEDS: MONTELUKAST SODIUM 10MG TABLET PO SCH (16:38)
[2023-01-04 20:00] VITALS: BP 111/48; PULSE 72; RESP 20; TEMP 99.3
[2023-01-04] MEDS: TRAZODONE HCL 50MG TABLET PO SCH (20:40)
[2023-01-04] MEDS: SERTRALINE HCL 100MG TABLET PO SCH (20:40)
[2023-01-04] MEDS: MIRTAZAPINE 15MG TABLET PO SCH (20:40)
[2023-01-04] MEDS: ATORVASTATIN CALCIUM 10MG TABLET PO SCH (20:40)
[2023-01-05] VITALS: BP 166/58; PULSE 67; RESP 20; TEMP 98.6
[2023-01-05 04:00] VITALS: BP 124/56; PULSE 71; RESP 18; TEMP 99.5
[2023-01-05] MEDS: PIPERACILLIN/TAZOBACTAM 3.375 G in DEXTROSE 5% WATER 50 ML IV SCH ×3 (05:48→21:20)
[2023-01-05 07:16] LABS: BASOPHILS % 0.3 % (0.0-2.0); EOSINOPHILS % 1.7 % (0.0-5.0); HEMATOCRIT. 29.7 % (36.0-48.0); HEMOGLOBIN. 9.4 g/dL (12.0-16.0); LYMPHOCYTES % 17.2 % (20.0-50.0); MEAN CORPUSCULAR HEMOGLOBIN 29.8 pg (28.0-32.0); MEAN CORPUSCULAR HGB CONC 31.9 g/dL (31.0-37.0); MEAN CORPUSCULAR VOLUME 93.4 fL (81.0-99.0); MONOCYTES % 8.7 % (2.0-8.0); NEUTROPHILS % 72.1 % (40.0-76.0); PLATELET 326 x1000/uL (130-400); RED BLOOD CELL COUNT 3.18 mill/uL (4.2-5.4); RED CELL DISTRIBUTION WIDTH 16.1 % (11.6-14.6)
[2023-01-05 08:00] VITALS: BP 148/71; PULSE 96; RESP 18; TEMP 97
[2023-01-05 08:32] LABS: CALCIUM 8.9 mg/dL (8.5-10.1); CHLORIDE 103 mEq/L (98-107); INDEX HEMOLYSI 2 (1-3); INDEX ICTERIC 1 (1-4); INDEX LIPEMIC 1 (1-3); POTASSIUM 3.6 mEq/L (3.5-5.1); SODIUM 139 mEq/L (136-145)
[2023-01-05 08:39] LABS: ALANINE AMINOTRANSFERASE 15 IU/L (13-61); ALBUMIN 2.2 g/dL (3.4-5.0); ASPARTATE AMINOTRANSFERASE 15 IU/L (15-37); BILIRUBIN TOTAL 0.2 mg/dL (0.1-1.0); CARBON DIOXIDE 29 mEq/L (21-32); CREATININE 0.7 mg/dL (0.6-1.3); GLUCOSE 88 mg/dL (70-105); PROTEIN TOTAL 6.6 g/dL (6.0-8.3); UREA NITROGEN BLOOD 13 mg/dL (7-21)
[2023-01-05] MEDS: IRON SUCROSE COMPLEX 100 MG/5 ML ML IV SCH (08:41)
[2023-01-05] MEDS: PANTOPRAZOLE SODIUM 40 MG/VIAL IV SCH (08:41)
[2023-01-05] MEDS: CALQUENCE 100 MG PO SCH ×2 (08:41→20:39)
[2023-01-05] MEDS: RISPERIDONE 1MG TABLET PO SCH ×2 (08:41→17:56)
[2023-01-05] MEDS: DOCUSATE SODIUM 100MG CAPSULE PO SCH ×2 (08:41→17:56)
[2023-01-05] MEDS: VANCOMYCIN 750MG PREMIX 150 ML IV SCH (08:42)
[2023-01-05 11:53] VITALS: BP 137/65; PULSE 68; RESP 18; TEMP 97
[2023-01-05 16:00] VITALS: BP 137/76; PULSE 84; RESP 18; TEMP 97.1
[2023-01-05] MEDS: MONTELUKAST SODIUM 10MG TABLET PO SCH (17:56)
[2023-01-05 20:00] VITALS: BP 126/58; PULSE 63; RESP 20; TEMP 98.1
[2023-01-05] MEDS: ATORVASTATIN CALCIUM 10MG TABLET PO SCH (20:38)
[2023-01-05] MEDS: MIRTAZAPINE 15MG TABLET PO SCH (20:38)
[2023-01-05] MEDS: SERTRALINE HCL 100MG TABLET PO SCH (20:38)
[2023-01-05] MEDS: TRAZODONE HCL 50MG TABLET PO SCH (20:38)
[2023-01-05 20:52] LABS: BASOPHILS % 0.2 % (0.0-2.0); EOSINOPHILS % 2.2 % (0.0-5.0); HEMATOCRIT. 26.3 % (36.0-48.0); HEMOGLOBIN. 8.6 g/dL (12.0-16.0); LYMPHOCYTES % 17.3 % (20.0-50.0); MEAN CORPUSCULAR HEMOGLOBIN 30.5 pg (28.0-32.0); MEAN CORPUSCULAR HGB CONC 32.8 g/dL (31.0-37.0); MEAN PLATELET VOLUME 7.8 fl (7.4-10.4); MONOCYTES % 7.8 % (2.0-8.0); NEUTROPHILS % 72.5 % (40.0-76.0); PLATELET 327 x1000/uL (130-400); RED BLOOD CELL COUNT 2.83 mill/uL (4.2-5.4); WHITE BLOOD COUNT 9.7 x1000/uL (4.5-11.0)
[2023-01-05 20:56] LABS: CHLORIDE 104 mEq/L (98-107); INDEX HEMOLYSI 1 (1-3); INDEX ICTERIC 1 (1-4); INDEX LIPEMIC 1 (1-3); POTASSIUM 3.5 mEq/L (3.5-5.1); SODIUM 139 mEq/L (136-145)
[2023-01-05 21:03] LABS: ALANINE AMINOTRANSFERASE 11 IU/L (13-61); ASPARTATE AMINOTRANSFERASE 8 IU/L (15-37); BILIRUBIN TOTAL 0.2 mg/dL (0.1-1.0); CALCIUM 8.6 mg/dL (8.5-10.1); CARBON DIOXIDE 32 mEq/L (21-32); CREATININE 0.7 mg/dL (0.6-1.3); GLUCOSE 114 mg/dL (70-105); PROTEIN TOTAL 5.9 g/dL (6.0-8.3); UREA NITROGEN BLOOD 12 mg/dL (7-21)
[2023-01-06 00:10] VITALS: BP 119/53; PULSE 84; RESP 22; TEMP 98.1
[2023-01-06] MEDS: ACETAMINOPHEN 325MG TABLET PO PRN ×2 (00:39→12:46)
[2023-01-06 04:00] VITALS: BP 125/60; PULSE 65; RESP 19; TEMP 97.6
[2023-01-06] MEDS: PIPERACILLIN/TAZOBACTAM 3.375 G in DEXTROSE 5% WATER 50 ML IV SCH (05:36)
[2023-01-06 07:14] LABS: BASOPHILS % 0.2 % (0.0-2.0); EOSINOPHILS % 2.5 % (0.0-5.0); HEMATOCRIT. 26.4 % (36.0-48.0); HEMOGLOBIN. 8.7 g/dL (12.0-16.0); LYMPHOCYTES % 20.7 % (20.0-50.0); MEAN CORPUSCULAR HEMOGLOBIN 30.3 pg (28.0-32.0); MEAN CORPUSCULAR HGB CONC 32.9 g/dL (31.0-37.0); MEAN CORPUSCULAR VOLUME 92.3 fL (81.0-99.0); MEAN PLATELET VOLUME 7.6 fl (7.4-10.4); MONOCYTES % 7.9 % (2.0-8.0); NEUTROPHILS % 68.7 % (40.0-76.0); PLATELET 329 x1000/uL (130-400); RED BLOOD CELL COUNT 2.86 mill/uL (4.2-5.4); RED CELL DISTRIBUTION WIDTH 15.5 % (11.6-14.6); WHITE BLOOD COUNT 9.2 x1000/uL (4.5-11.0)
[2023-01-06] MEDS: IRON SUCROSE COMPLEX 100 MG/5 ML ML IV SCH (08:48)
[2023-01-06] MEDS: DOCUSATE SODIUM 100MG CAPSULE PO SCH (10:00)
[2023-01-06] MEDS: RISPERIDONE 1MG TABLET PO SCH (10:00)
[2023-01-06] MEDS: CALQUENCE 100 MG PO SCH (10:12)
[2023-01-06] MEDS ORDERED: NITR100C MT (10:30)
[2023-01-06 10:37] LABS: CHLORIDE 108 mEq/L (98-107); INDEX HEMOLYSI 1 (1-3); INDEX ICTERIC 1 (1-4); INDEX LIPEMIC 1 (1-3); POTASSIUM 3.4 mEq/L (3.5-5.1); SODIUM 143 mEq/L (136-145)
[2023-01-06 10:45] LABS: ALANINE AMINOTRANSFERASE 10 IU/L (13-61); ASPARTATE AMINOTRANSFERASE 9 IU/L (15-37); BILIRUBIN TOTAL 0.2 mg/dL (0.1-1.0); CALCIUM 8.9 mg/dL (8.5-10.1); CARBON DIOXIDE 33 mEq/L (21-32); CREATININE 0.8 mg/dL (0.6-1.3); GLUCOSE 103 mg/dL (70-105); PROTEIN TOTAL 5.8 g/dL (6.0-8.3); UREA NITROGEN BLOOD 12 mg/dL (7-21)
[2023-01-06 12:00] VITALS: BP 116/62; PULSE 67; RESP 20; TEMP 98.1
[2023-01-06] MEDS ORDERED: DIPHENHYDRAMINE 50MG/ML VIAL IV NR (14:00)
[2023-01-06] MEDS ORDERED: KETOROLAC 15MG/ML VIAL IV NR (14:07)
[2023-01-06 16:00] VITALS: BP 126/67; PULSE 65; RESP 18; TEMP 98
[2023-01-06 16:23] VITALS: BP 116/62; PULSE 67; TEMP 97.7; O2SAT 98
== END 2023-01-06 17:38 | DRG 871 ==
LOC: ER 17:21 → MICUSO 22:02 → EDBEDREQ 22:20 → EDBEDREQTM 22:20 → 7WST 01-03 00:21
PROVIDERS: ADMIT Internal Medicine; ATTEND Internal Medicine
DX: A41.9 Sepsis, unspecified organism (principal); G92.8 Other toxic encephalopathy; J96.01 Acute respiratory failure with hypoxia; R65.21 Severe sepsis with septic shock; E46 Unspecified protein-calorie malnutrition; E87.3 Alkalosis; F03.93 Unspecified dementia, unspecified severity, with mood disturbance; I13.0 Hypertensive heart and chronic kidney disease with heart failure and stage 1 through stage 4 chronic kidney disease, or unspecified chronic kidney disease; I50.32 Chronic diastolic (congestive) heart failure; N39.0 Urinary tract infection, site not specified; E78.5 Hyperlipidemia, unspecified; D64.9 Anemia, unspecified; I50.9 Heart failure, unspecified; F32.9 Major depressive disorder, single episode, unspecified; J44.9 Chronic obstructive pulmonary disease, unspecified; K57.30 Diverticulosis of large intestine without perforation or abscess without bleeding; K59.00 Constipation, unspecified; N18.9 Chronic kidney disease, unspecified; K21.9 Gastro-esophageal reflux disease without esophagitis; Z85.6 Personal history of leukemia; Z86.14 Personal history of Methicillin resistant Staphylococcus aureus infection; Z86.73 Personal history of transient ischemic attack (TIA), and cerebral infarction without residual deficits; Z87.440 Personal history of urinary (tract) infections; Z87.891 Personal history of nicotine dependence; Z88.1 Allergy status to other antibiotic agents; Z88.6 Allergy status to analgesic agent; Z88.8 Allergy status to other drugs, medicaments and biological substances; Z79.899 Other long term (current) drug therapy
CPT/HCPCS: 36415; 71045; 74018; 74176; 80053; 80061; 80202; 81003; 82270; 82728; 83540; 83550; 83605; 83880; 84145; 84439; 84443; 84484; 85025; 85379; 87077; 87186; 93005; 93306; 93970; 94640; 99291; C1893; C9113; J1200; J2543; J3370; J7030; J7060